=== PATIENT | male | born 1960 | race Caucasian/White ===

== ENCOUNTER → 2020-05-23 | Outpatient (CLI) | payer OTHER ==
--- NOTE | 2020-05-23 17:24 | Diagnostic Imaging Report ---
INDICATION: Polyarthralgias. Bilateral shoulder pain. 3 views of each shoulder were obtained which shows no fracture, dislocation or other acute abnormality on either side. There is minimal narrowing of the glenohumeral joint on the left with no spurring. On the right, there is marked narrowing of the glenohumeral joint with hypertrophic spurring inferiorly on both sides of the joint. There is some flattening of the medial humeral head. There is subchondral sclerosis and cyst formation. IMPRESSION: There are mild degenerative changes of the left shoulder joint with moderately advanced degenerative changes on the right. Dictated by: Dictated on workstation # [id number]
--- NOTE | 2020-05-23 17:24 | Diagnostic Imaging Report ---
INDICATION: Polyarthralgia. Bilateral hand pain. EXAMINATION: Three views of each hand were obtained. FINDINGS: On the right, there is no fracture, dislocation or other acute abnormality. There is mild narrowing of the DIP joints, most pronounced at the 2nd digit. There is no significant spurring. There is also some mild narrowing of the carpometacarpal joint of the thumb. On the left, there is no fracture, dislocation or other acute abnormality. There are mild degenerative changes of the DIP joints most pronounced in the 3rd and 5th digits. There is [id number] degenerative change at the carpal metacarpal joint of the thumb. IMPRESSION: There are degenerative changes present with no acute abnormality seen. Dictated by: Dictated on workstation # [id number]
== END ==
LOC: RAD 16:33
PROVIDERS: ATTEND Internal Medicine
DX: M19.042 Primary osteoarthritis, left hand (principal); M19.041 Primary osteoarthritis, right hand; M19.012 Primary osteoarthritis, left shoulder

== ENCOUNTER 2020-06-04 17:27 | Emergency (ER) | payer OTHER ==
[~2020-06-04] VITALS: Ht 182.9 cm; Wt 99.8 kg
--- NOTE | 2020-06-04 18:12 | ED Back Pain ---
General Chief Complaint: Back Problems Stated Complaint: LOWER BACK PAIN Nursing Triage Note: PT TO ROOM 06 VIA W/C WITH C/O LOWER BACK PAIN STARTING YESTERDAY AND RIGHT SHOULDER PAIN STARTING THIS MORNING. PT REPORTS SHOULDER PAIN IS CHRONIC Nursing Sepsis Screen: No Definite Risk Source of Information: Patient Exam Limitations: No Limitations History of Present Illness Date Seen by Provider: Jun 04, 2020 Time Seen by Provider: 17:48 Initial Comments Patient presents to ER by private conveyance with chief complaint of chronic right shoulder and low back pain. He went to the chiropractor yesterday and they did some kind of table stretching exercises that causes pain to worsen and now he's having some sciatic pain down his left buttock. He has a history of traditional having sciatic pain in his right buttock. He's had imaging of his back before. He is followed by a grinder and plater who is going to do shoulder and thumb injections of steroids later this week. He is also followed by Dr. Luis Antonio jarquin, [facility] business strategy manager for congestive heart failure and has been told not to use NSAIDs. He has been using Tylenol and heat and ice. He was given a prescription for muscle relaxant from his primary care doctor out of [place] as well as a follow-up appointment in a few weeks with a spine surgeon. He says the pain is so bad he has a hard time rolling over. He has no numbness or tingling in his legs, weakness falls, paresthesias elsewhere, loss of control of bowel and/or bladder. No other recent trauma. Allergies and Home Medications Patient Home Medication List Home Medication List Reviewed: Yes Review of Systems Constitutional: No chills, No diaphoresis EENTM: No ear discharge, No ear pain Respiratory: No cough, No dyspnea on exertion Gastrointestinal: No abdominal pain, No nausea, No vomiting Genitourinary: No discharge, No dysuria Musculoskeletal: back pain, joint pain All Other Systems Reviewed Negative Unless Noted: Yes Past Hfwuakp-Jhtwec-Ibcueh Hx Patient Social History Alcohol Use: Denies Use Recreational Drug Use: No Smoking Status: Current Everyday Smoker Type Used: Cigarettes 2nd Hand Smoke Exposure: Yes Recent Foreign Travel: No Contact w/Someone Who Travel: No Recent Infectious Disease Expo: No Recent Hopitalizations: No Physical Abuse: No Sexual Abuse: No Mistreated: No Fear: No Seasonal Allergies Seasonal Allergies: No Past Medical History Surgeries: Yes Defibrillator Respiratory: Yes COPD Cardiac: Yes Coronary Artery Disease, Hypertension Neurological: No Genitourinary: No Gastrointestinal: No Musculoskeletal: No Endocrine: No HEENT: No Cancer: No Psychosocial: No Integumentary: No Blood Disorders: No Physical Exam Vital Signs Vital Signs - First Documented 06/04/20 17:46 Temp 36.3 Pulse 102 Resp 18 B/P (MAP) 158/91 (113) O2 Delivery Room Air Capillary Refill : Less Than 3 Seconds Height, Weight, BMI Height: '" Weight: lbs. oz. kg; 29.00 BMI Method: General Appearance: WD/WN, Mild Distress HEENT: PERRL/EOMI, Pharynx Normal, Moist Mucous Membranes Neck: Full Range of Motion, Normal Inspection Cardiovascular: Regular Rate, Rhythm, Normal Peripheral Pulses Respiratory: Chest Non Tender, No Accessory Muscle Use, No Respiratory Distress Peripheral Pulses: 2+ Radial Pulses (R), 2+ Radial Pulses (L) Back: Normal Inspection, No Vertebral Tenderness, Muscle Spasm (left paralumbar spinous muscles) Neurologic/Psychiatric: Alert, Oriented x3, No Motor/Sensory Deficits Skin: Normal Color, Warm/Dry Progress/Results/Core Measures Results/Orders Vital Signs/I&O 06/04/20 17:46 Temp 36.3 Pulse 102 Resp 18 B/P (MAP) 158/91 (113) O2 Delivery Room Air Blood Pressure Mean: 113 Progress Progress Note : Time: 18:07 Progress Note Patient has reasons he can't have NSAIDs and has plans to get steroid injections later in the week. This is nontraumatic chronic back and shoulder pain. He has tried chiropractic the as well as Tylenol and topical creams. We will recommend physical therapy and provide him with a few tablets of hydrocodone to tide him over. Departure Impression Primary Impression: Lumbago Qualified Codes: M54.42 - Lumbago with sciatica, left side; G89.29 - Other chronic pain Additional Impression: Chronic right shoulder pain Disposition: 01 HOME, SELF-CARE Condition: Stable Departure-Patient Inst. Decision time for Depature: 18:08 Referrals: NO,LOCAL PHYSICIAN (PCP/Family) Primary Care Physician Patient Instructions: Lumbar Muscle Strain (DC), Back Flexion Stretching Exercises Add. Discharge Instructions: Drink plenty fluids. Tylenol 650 mg every 8 hours as necessary for pain. Next line topical creams such as icy hot, Biofreeze, capsaicin oil. Use your muscle relaxants as prescribed. Hydrocodone one tablet every 6 hours as necessary for severe breakthrough pain keeping you from being functional. Hydrocodone will cause drowsiness and you may cut the tablet in half as well as the muscle relaxant tablets in half if you feel groggy in the morning. Hydrocodone should not be mixed with alcohol. Hydrocodone will cause constipation and you can use Colace or MiraLAX to help combat this. Do not expect to be pain-free rather look to be more functional in your body will heal over the next few weeks. Keep your follow-up appointment with the grinder and plater for steroid injections. Follow-up with physical therapy in the next 1-2 weeks if not seeing some improvement by calling for a no-cost evaluation at [phone]. Return to the nearest ER if you have inability to walk, loss of control of your bowels and/or bladder, numbness with no feeling. All discharge instructions reviewed with patient and/or family. Voiced understanding. Scripts Hydrocodone/Acetaminophen (Hydrocodone-Acetamin 5-325 mg) 1 Each Tablet 1 EACH PO Q6H PRN for PAIN-BREAKTHROUGH, #15 TAB 0 Refills Prov: LASHAUN LAMBERT 06/04/20 LASHAUN LAMBERT Jun 04, 2020 18:12
[2020-06-04] MEDS ORDERED: ACHD5005 PO (18:14)
[2020-06-04 18:23] VITALS: BP 149/73
== END 2020-06-04 18:23 | disposition home or self-care (01) ==
LOC: EDUNIT# 17:27 → ER 17:29
DX: M54.42 Lumbago with sciatica, left side (principal); M25.511 Pain in right shoulder; F17.210 Nicotine dependence, cigarettes, uncomplicated; Z95.810 Presence of automatic (implantable) cardiac defibrillator
CPT/HCPCS: 99281